=== PATIENT | male | born 1970 | race Caucasian/White ===

== ENCOUNTER → 2021-02-27 | Day surgery (SDC) | payer OTHER ==
[~2021-02-27] VITALS: Ht 157.5 cm; Wt 70.4 kg
[~2021-02-27] MED LIST: GABA300C18 PO; IV RINGERS,LACTATED 1000ML 1,000 ML IV SCH; LIDOCAINE 2% PF 5 ML VIAL. ONE; METO50TA4 PO; OMEP20TA63 PO; PROPOFOL 10 MG/ML (20ML) VIAL. IV ONE; SIMV10TA PO
[2021-02-27 06:28] VITALS: BP 153/83
[2021-02-27 08:25] VITALS: BP 149/86
--- NOTE | 2021-02-28 06:01 | HP ---
DATE OF SERVICE: 02/27/2021 ADMIT DATE: 02/27/2021 REASON FOR ADMISSION: Hiccups and heartburn. HISTORY OF PRESENT ILLNESS: A 51-year-old male with past medical history significant for reflux, esophageal stricture, hyperlipidemia as well as hypertension, is seen for interval endoscopy. He has had recurrent heartburn. Previous upper endoscopy with dilatation did improve his dysphagia, but not the hiccups a few years ago. He has had treatment for H. pylori, which was uneventful, although ____ hiccups have since resolved. With continued heartburn, he requests interval endoscopy. PAST MEDICAL HISTORY: Hypertension, hyperlipidemia, gastroesophageal reflux disease. ALLERGIES: MORPHINE. MEDICATIONS: Include Neurontin, metoprolol, omeprazole, and simvastatin. FAMILY AND SOCIAL HISTORY: Noncontributory. PAST SURGICAL HISTORY: Noncontributory. REVIEW OF SYSTEMS: Per records. PHYSICAL EXAMINATION: VITAL SIGNS: Temperature is 97.5, pulse 78, respiratory rate 18. LUNGS: Clear. CARDIOVASCULAR: Reveals an S1, S2, without S3, S4 or appreciable murmur. ABDOMEN: Revealed a soft abdomen. Normal bowel sounds, without appreciable hepatosplenomegaly. EXTREMITIES: Reveals no cyanosis, clubbing or edema. IMPRESSION: Reflux with hiccups. Differential includes hiatal hernia, gastroparesis, peptic ulcer disease, achalasia, malignancy as well as Bolden's. We therefore, recommend upper endoscopy, possible biopsy. Risks and benefits of the procedure including risk of hemorrhage and perforation were discussed; and patient is willing to proceed. Thank you, Dr. Juan Bocanegra for allowing us to consult and participate in the patient's care. OSKAR/MARCO DR: Levi TID: [id number] CC: Dr. Juan Bocanegra
== END | disposition home or self-care (01) ==
LOC: SURG 06:22 → EEVIPCON 07:30
PROVIDERS: ATTEND Internal Medicine Gastroenterology
DX: R12 Heartburn (principal); K21.00 Gastro-esophageal reflux disease with esophagitis, without bleeding; K31.89 Other diseases of stomach and duodenum; K44.9 Diaphragmatic hernia without obstruction or gangrene; I10 Essential (primary) hypertension; E78.00 Pure hypercholesterolemia, unspecified; Z79.899 Other long term (current) drug therapy; Z98.890 Other specified postprocedural states; Z88.6 Allergy status to analgesic agent
CPT/HCPCS: 43239; 88305; J2704